=== PATIENT | male | born 1990 | race African-American/Black ===

== ENCOUNTER 2017-07-03 07:19 | Emergency (ER) | payer SELFPAY ==
[~2017-07-03] VITALS: Ht 182.9 cm; Wt 100.0 kg
[2017-07-03 07:21] VITALS: BP 148/85; PULSE 80; RESP 14; TEMP 98.5; O2SAT 99
[2017-07-03 07:33] VITALS: BP 168/86; PULSE 80; O2SAT 98
[2017-07-03] MEDS ORDERED: SODIUM CHLOR 0.9% 1000 ML INJ 1,000 ML IV ONE (07:45)
[2017-07-03] MEDS ORDERED: DICYCLOMINE HCL 20 MG/2 ML VIAL IM ONE (07:45)
--- NOTE | 2017-07-03 07:49 | PD ---
HPI Chief Complaint: Abdominal Pain Time Seen by Provider: 07:44 Travel History International Travel<30 days: No Contact w/Intl Traveler<30days: No Traveled to known affect area: No History of Present Illness HPI This is a 27-year-old male who presents today with complaints of diarrhea 3 episodes with abdominal cramps. Patient states last night he went to a buffet and got a take out with "all kinds of food". The patient states roughly 4-5 hours later he started experiencing severe cramps in his belly and he's had 3 episodes of watery loose stool since then. He denies any fevers, chills. He denies any nausea vomiting. Patient also gives history that 3 days ago he had pain and pressure in his right sinus below his right eye. He states that then he started smelling he describes as a "fecal smell". He denies any fevers, chills or denies any pain with eye movement. He denies any further pain in his sinus area. He still states that he gets occasional smell of the feces that he describes above. [facility] Past Medical History Medical History: Denies Significant Hx Diminished Hearing: No Past Surgical History Surgical History: No Previous Surgery Social History Alcohol Use: Yes Tobacco Use: No Substance Use: No Allergies-Medications (Allergen,Severity, Reaction): Coded Allergies: No Known Allergies (Verified , 07/03/17) Reported Meds & Prescriptions Reported Meds & Active Scripts Active Augmentin (Amoxicillin-Clavulanate) 875-125 Mg Tab 1 Tab PO BID 7 Days Review of Systems Except as stated in HPI: all other systems reviewed are Neg General / Constitutional: No: Fever, Chills HENT: Positive: Other (sinus pain earlier with "fecal smell".), No: Headaches, Sore Throat, Rhinorrhea, Neck Pain Cardiovascular: No: Chest Pain or Discomfort, Palpitations Respiratory: No: Cough Gastrointestinal: Positive: Diarrhea, Abdominal Pain (crampy), No: Nausea, Vomiting, Hematochezia Genitourinary: No: Dysuria Musculoskeletal: No: Weakness, Pain Neurologic: No: Weakness, Dizziness Physical Exam Narrative GENERAL: Well-nourished, well-developed patient, in no acute distress.. SKIN: Focused skin assessment warm/dry. HEAD: Normocephalic. EYES: No scleral icterus. No injection or drainage. ENT: Mucosa pink and moist. No erythema or exudates. No uvular edema. Minimal tenderness in the right maxillary sinus. No redness. No drainage. NECK: Supple, trachea midline. CARDIOVASCULAR: Regular rate and rhythm without murmurs, gallops, or rubs. RESPIRATORY: Breath sounds equal bilaterally. No accessory muscle use. GASTROINTESTINAL: Abdomen soft, non-tender, nondistended. Patient reports subjective crampiness but no tenderness on exam. NEUROLOGICAL: Awake and alert. Cranial nerves II through XII intact. Motor grossly within normal limits. Five out of 5 muscle strength in all muscle groups. Normal speech. Data Data Last Documented VS Vital Signs Date Time Temp Pulse Resp B/P (MAP) Pulse Ox O2 Delivery O2 Flow Rate FiO2 07/03/17 07:33 80 168/86 (113) 98 07/03/17 07:21 98.5 14 Orders Orders Iv Access Insert/Monitor (07/03/17 07:44) Sodium Chlor 0.9% 1000 Ml Inj (Ns 1000 M (07/03/17 07:45) Dicyclomine Inj (Bentyl Inj) (07/03/17 07:45) MDM Medical Decision Making Medical Screen Exam Complete: Yes Emergency Medical Condition: Yes Differential Diagnosis Foodborne gastroenteritis versus gastroenteritis versus appendicitis versus diverticulitis. Narrative Course 27-year-old male presents today with GI symptoms secondary to eating food. Patient had a buffet style meal last night and shortly thereafter had diarrhea. Patient has a soft benign abdomen. He is afebrile. He's been given I V fluids and Bentyl. He is much improved. Patient also complaining of sinus symptoms. Given the fact that he had a foul-smelling odor with his sinus disease, he'll be treated with antibiotics. He'll follow up with primary care physician or ENT if symptoms persist. Diagnosis Primary Impression: suspected food related diarrhea Additional Impression: Sinusitis Additional Instructions: If sinus symptoms persist, follow up with ear nose and throat physician. Med/Other Pt SpecificInfo: Prescription(s) given Scripts Amoxicillin-Clavulanate (Augmentin) 875-125 Mg Tab 1 TAB PO BID for Infection for 7 Days, #14 TAB 0 Refills Prov: Subhash Moreno MD 07/03/17 Disposition: 01 DISCHARGE HOME Condition: Stable Subhash Moreno MD Jul 03, 2017 07:49
[2017-07-03] MEDS ORDERED: AUGM875T3 PO (10:24)
== END 2017-07-03 11:12 | disposition home or self-care (01) ==
LOC: NEPE 07:19
DX: R19.7 Diarrhea, unspecified (principal); J32.9 Chronic sinusitis, unspecified; R10.9 Unspecified abdominal pain
CPT/HCPCS: 96360; 96372; 99284; J0500; J7030